=== PATIENT | female | born 1980 | race Caucasian/White ===

== ENCOUNTER 2018-09-15 15:08 | Emergency (ER) | payer BC ==
[~2018-09-15] VITALS: Ht 149.9 cm; Wt 48.3 kg
[2018-09-15 15:17] VITALS: BP 128/84; Ht 149.9 cm; Wt 48.3 kg
== END 2018-09-15 18:49 | disposition home or self-care (01) ==
LOC: ED 15:08
DX: R07.89 Other chest pain (principal); N64.4 Mastodynia; Z98.82 Breast implant status